=== PATIENT | female | born 1960 | race Caucasian/White ===

== ENCOUNTER 2017-03-29 16:59 | Emergency (ER) | payer OTHER, BC ==
[~2017-03-29] VITALS: Ht 154.9 cm; Wt 71.7 kg
[2017-03-29] MEDS ORDERED: NORCO 5-325 TA1 EACH PO (18:22)
[2017-03-30] MEDS ORDERED: LAMICTAL150 MG PO (14:23)
[2017-03-30] MEDS ORDERED: PRILOSEC OTC20 MG PO (14:24)
[2017-03-30] MEDS ORDERED: IRON325 M1 PO (14:24)
[2017-03-30] MEDS ORDERED: CYMBALTA30 MG PO (14:24)
== END 2017-03-29 19:05 | disposition home or self-care (01) ==
LOC: ED 16:59
PROC: 2W3CX1Z Immobilization of Right Lower Arm using Splint (ICD-10-PCS; principal; 2017-03-29)
DX: S62.616A Displaced fracture of proximal phalanx of right little finger, initial encounter for closed fracture (principal); S62.614A Displaced fracture of proximal phalanx of right ring finger, initial encounter for closed fracture; S80.11XA Contusion of right lower leg, initial encounter; S60.221A Contusion of right hand, initial encounter; Z88.2 Allergy status to sulfonamides; V43.52XA Car driver injured in collision with other type car in traffic accident, initial encounter
CPT/HCPCS: 29125; 73110; 73130; 90715; 96372; 99283

== ENCOUNTER 2017-04-03 09:00 | Day surgery (SDC) | payer OTHER, BC ==
[~2017-04-03] VITALS: Ht 154.9 cm; Wt 71.7 kg
[~2017-04-03 09:00] MED LIST: CYMBALTA30 MG PO; IRON325 M1 PO; LAMICTAL150 MG PO; NORCO 5-325 TA1 EACH PO; PRILOSEC OTC20 MG PO
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
== END 2017-04-03 17:38 | disposition home or self-care (01) ==
LOC: DS 09:00 → OPS 09:00 → DS 14:00 → OPS 14:00
PROVIDERS: Specialist
PROC: 0PSP04Z Reposition Right Metacarpal with Internal Fixation Device, Open Approach (ICD-10-PCS; 2017-04-03)
PROC: 0PSP04Z Reposition Right Metacarpal with Internal Fixation Device, Open Approach (ICD-10-PCS; principal; 2017-04-03 14:00)
DX: S62.314A Displaced fracture of base of fourth metacarpal bone, right hand, initial encounter for closed fracture (principal); S62.316A Displaced fracture of base of fifth metacarpal bone, right hand, initial encounter for closed fracture; F41.0 Panic disorder [episodic paroxysmal anxiety]; F32.9 Major depressive disorder, single episode, unspecified; M19.90 Unspecified osteoarthritis, unspecified site; G43.909 Migraine, unspecified, not intractable, without status migrainosus; D64.9 Anemia, unspecified; Z96.611 Presence of right artificial shoulder joint; Z88.2 Allergy status to sulfonamides; Z98.890 Other specified postprocedural states; Z88.8 Allergy status to other drugs, medicaments and biological substances; V89.2XXA Person injured in unspecified motor-vehicle accident, traffic, initial encounter
CPT/HCPCS: 01830; 64415; 73120; 76942; C1713; J0690; J0735; J1100; J1885; J2250; J2270; J2405; J2704; J2765; J3010; J7120

== ENCOUNTER 2018-10-08 05:45 | Day surgery (SDC) | payer BC ==
--- NOTE | 2018-09-25 17:01 | NUR ---
PATIENT HERE TODAY FOR PREADMISSION APPOINTMENT. SHE IS SCHEDULED TO HAVE A RIGHT TOTAL KNEE ARTHROPLASTY DONE ON 10/08/18. HER PER WILL BE HERE TO TAKE HER HOME WHEN SHE IS DISCHARGED AND TO APPOINTMENTS NEEDED. THEY HAVE ONE STEP INTO THE HOME AND NO STEPS INSIDE THE HOME. SHE HAS A WALK IN SHOWER AND ALREADY HAS A SHOWER BENCH. SHE WILL BE BORROWING A FRONT WHEELED WALKER FROM A FRIEND. SHE HAS ATTENDED THE [facility] AND PHYSICAL THERAPY IS SET UP WITH [facility]. THIS INFORMATION WILL BE SET TO DR ZENDEJAS OFFICE AND CASE MANAGEMENT FOR FUTHER FOLLOW UP.
[~2018-10-08] VITALS: Ht 154.9 cm; Wt 69.4 kg
[~2018-10-08 05:45] MED LIST changes: +VITAMIN C250 M1 PO
--- NOTE | 2018-10-08 08:56 | NUR ---
10/08/18 0856 Nyasia Castellon SN 0824- PT ARRIVES TO PACU. PT RESPS EVEN AN UNABORED ON RA. 02 SAT HIGH 90S PT TOLERATING WELL. PT ABLE TO RESPOND VERBALLY TO QUESTIONS AT THIS TIME. PT DENIES PAIN NAUSEA AND DIZZINESS. PT STATES SHE IS JUST VERY DROWSY. VARSHA DRESSING IN PLACE WITH GREEN LIGHT FLASIHING. ON-Q PUMP RUNNING AT 2 ML PER HOUR WIT HGREEN LIGHT FLASHING. 0830- PT PROVIDED WITH ICE CHIPS FOR DRY MOUTH. TOLERATING WELL. REPSS EVEN AND UNLABORED. 02 SAT HIGH 90S ON RA. DENIES PAIN NAUSEA AND DIZZINESS AT THIS TIME. 0839- PT REPORTS FEELING ITCHY AT THIS TIME. SHE STATES THIS IS TOLERABLE. PT EEDUCATED ON POSSIBLE REASONS FOR THIS ITCHINESS BY CHARELNE VENEGAS. PT RESPS EVEN AND UNLABORED. 02 SAT HIGH 90'S ON RA. PT REPORTS NO PAIN NAUSEA OR DIZZINESS AT THIS TIME.
--- NOTE | 2018-10-08 09:15 | NUR ---
PT ARRIVED TO ROOM 115, PT ALERT, REPORTS NO PAIN OR NAUSEA. DRESSING IN PLACE VACCUM WNL, ON Q SET AT 2. FAMILY AT BEDSIDE. REPORTS FROM DAYANA RN AND STUDENT RN.
--- NOTE | 2018-10-08 09:40 | NUR ---
PT REPORT RECEIVED FROM CHARLENE CORNEJO. PT AND IN ROOM. PT AWAKE AND ALERT. STILL NUMB BUT ABLE TO WIGGLE TOES. EDUCATED ON VARSHA, ON-Q. VS STABLE.
--- NOTE | 2018-10-08 11:45 | NUR ---
MET WITH PT, JUST BEFORE SURGERY. PT SUPPORTED BY HER PER. DR INIGUEZ TO COME IN-EXTENDED A BLESSING, WILL CONTINUE TO FOLLOW NEEDED
--- NOTE | 2018-10-08 11:48 | NUR ---
VISITED WITH PT'S DURING SURGERY. HE SEEMED ALITTLE ANXIOUS, BUT OK. HAD GOOD VISIT WITH HIM, PRAYED WITH HIM AND WILL FOLLOW NEEDED
--- NOTE | 2018-10-08 12:12 | NUR ---
NURSE HANDOFF TO THIS NURSE. PATIENT APPEARS COMFORTABLE, RESTING IN BED WITH EYES CLOSED. NO NEEDS AT THIS TIME. DRESSING C/D/I.
[2018-10-08] MEDS ORDERED: DULOXETINE HCL60 MG PO (13:25)
[2018-10-08] MEDS ORDERED: LAMOTRIGINE100 MG PO (13:27)
--- NOTE | 2018-10-08 13:29 | NUR ---
Medications reconciled with pharmacy records and patient
--- NOTE | 2018-10-08 14:18 | NUR ---
ADMINISTERED SCHEDULED MEDS. PT RATES PAIN 3/10 JUST IN ONE SPOT. DRESSING CDI.
--- NOTE | 2018-10-08 14:23 | NUR ---
PATIENT IN BED, IN ROOM. FRESH WATER GIVEN. CRYO FILLED. CALL LIGHT IN REACH. NO FURTHER NEEDS AT THIS TIME.
--- NOTE | 2018-10-08 14:26 | NUR ---
PT SITTING UP IN BED-ALERT AND ORIENTED. HER PER AT BS. PT STATED THAT HER PAIN IS 2-3, AND THAT SHE HAD BEEN UP SEVERAL TIMES TO VOID. PREPARING FOR PM P.T. HAD PLEASANT VISIT, CHARLENE GARCIA IN TO GIVE MEDS AND EXPLAINED EACH SHE GAVE TO PT. PT REQUESTED PRAYER, WILL FOLLOW NEEDED
--- NOTE | 2018-10-08 17:23 | NUR ---
PT SITTING UP IN BD EATING DINNER. RATES PAIN 0/10. DID WELL WITH THERAPY TODAY. DRESSING REMAINS CDI.
--- NOTE | 2018-10-08 18:11 | NUR ---
PATIENT IN BED RESTING. CRYO FILLED. FRESH WATER GIVEN. CALL LIGHT IN REACH. NO FURTHER NEEDS AT THIS TIME.
--- NOTE | 2018-10-08 20:19 | NUR ---
RECEIVED REPORT FROM DAY SHIFT RN. PATIENT IS RESTING IN BED. IS AT THE BEDSIDE. PATIENT DENIES ANY PAIN. NO NEEDS NOTED. CALL LIGHT IN REACH.
--- NOTE | 2018-10-08 21:20 | NUR ---
PATIENT ASSESEMENT COMPLETED. PATIENT DENIES ANY PAIN. PATIENT GIVEN SCHEDULED MEDICATIONS PER ORDER. PATIENT IS SL AND IV FLUSHES WELL. PATIENT HAS TEDHOSE, SCDS, AND HEEL PROTECTORS ON BILAT LOW EXT. PATIENT HAS VARSHA IN PLACE, GREEN LIGHT FLASHING, AND SCANT DRAINAGE NOTED. ON-Q IN PLACE. PATIENT HAS CRYO APPLIED TO RIGHT KNEE AND CRYO HAS SUFFICIENT ICE. PATIENT IS AAOX3. PATIENT IS ON RA AND CPOX IN PLACE. PATIENT DENIES ANY FURTHER NEEDS NOTED. CALL LIGHT IN REACH.
--- NOTE | 2018-10-08 23:59 | NUR ---
PATIENT IS RESTING IN BED WITH EYES CLOSED. CPOX WNL. CALL LIGHT IN REACH.
--- NOTE | 2018-10-09 00:05 | NUR ---
V/S AND I&O TAKEN AND RECORDED. ASSISTED PATIENT TO THE BATHROOM AND BACK TO BED USING WALKER. SCD, CRYO HEEL PROTECTOR AND CPOX ARE BACK ON. CALL LIGHT AND TABLE WITHIN REACH.
--- NOTE | 2018-10-09 02:51 | NUR ---
PATIENT ASSISTED TO THE RESTROOM A SBA W/FWW. PATIENT WAS ABLE TO VOID. PATIENT IS NOW BACK IN BED RESTING. PATIENT IS STEADY ON HER FEET. PATIENT HAS SCDS, HEEL PROTECTORS, AND TEDHOSE ON BILAT LOW EXT. CRYO REFILLED WITH ICE AND APPLIED TO RIGH KNEE. PATIENT DENIES ANY PAIN AT REST OR W/AMBULATION. PATIENTS SCHEDULED MEDICATIONS GIVEN PER ORDER. PATIENT DENIES ANY FURTHER NEEDS. CALL LIGHT IN REACH.
--- NOTE | 2018-10-09 04:45 | NUR ---
PATIENT IS RESTING IN BED WITH EYES CLOSED, RR 17. CALL LIGHT IN REACH.
--- NOTE | 2018-10-09 05:18 | NUR ---
PATIENT RESTED WELL THROUCHOUT THE SHIFT. PATIENT IS A SBA W/FWW AND IS STEADY ON HER FEET. PATIENT IS ON A REGULAR DIET, TOLERATING WELL, AND NO COMPLAINTS OF NAUSEA. PATIENT IS ON RA. PATIENT IS SL AND IV FLUSHES WELL. PATIENT HAS CRYO APPLIED TO RIGHT KNEE. PATIENT HAS SCDS, TEDHOSE, AND HEEL PROTECTORS APPLIED TO BILAT LOW EXT. PATIENT HAS ON-Q IN PLACE. PATIENT HAS VARSHA DRESSING IN PLACE, SCANT DRAINAGE NOTED, AND GREEN LIGHT FLASHING. PATIENT HAS DENIED ANY PAIN. PATIENT IS AAOX3 AND USES CALL LIGHT APPROPRIATELY.
--- NOTE | 2018-10-09 06:21 | NUR ---
PATIENTS VITALS TAKEN AND RECORDED. PATIENTS INTAKE AND OUPUT RECORDED. MORNING MEDICATIONS GIVEN PER ORDER. PATIENT RATES PAIN AT A 2/10. PATIENT DENIES THE NEED FOR PAIN MEDICATION AT THIS TIME. PATIENT DENIES ANY FURTHER NEEDS. CALL LIGHT IN REACH.
--- NOTE | 2018-10-09 07:37 | NUR ---
BEDSIDE REPORT..PT RESTING IN BED EYES CLOSED, RESP EVEN 14 BPM NO DISTRESS NOTED. PT APPEARS TO BE SLEEPING.
[2018-10-09] MEDS ORDERED: DICLOFENAC SODI75 MG PO (08:10)
[2018-10-09] MEDS ORDERED: GABAPENTIN600 MG PO (08:11)
[2018-10-09] MEDS ORDERED: TYLENOL EXTRA500 MG PO (08:11)
[2018-10-09] MEDS ORDERED: HEALTHYLAX17 GM PO (08:11)
[2018-10-09] MEDS ORDERED: OXYCODONE HCL5 MG PO (08:11)
[2018-10-09] MEDS ORDERED: SENNA LAX8.6 MG PO (08:11)
[2018-10-09] MEDS ORDERED: ASPIRIN EC325 MG PO (08:12)
--- NOTE | 2018-10-09 08:25 | NUR ---
PATIENT UP TO CHAIR FOR BREAKFAST, 1PA FWW. CALL LIGHT IN REACH. NO FURTHER NEEDS AT THIS TIME.
--- NOTE | 2018-10-09 09:23 | NUR ---
PT UP AMBULATING WITH PHYSICAL THERAPY, SHE REPORTS 0/10 AND DOES NOT WANT ANY PAIN MEDICATION AT THIS TIME
--- NOTE | 2018-10-09 10:16 | NUR ---
PT BACK TO RECLINER AFTER WORKING WITH PHYSCIAL THERAPY, SHE REPORTS PAIN 4/10, GOAL LEVEL 2/10. PT DID NOT WANT OXYCODONE AT THIS TIME. PT GIVEN SCHEDULED PAIN MEDICATIONS AT THIS TIME.
--- NOTE | 2018-10-09 11:27 | NUR ---
PATIENT UP TO SHOWER AND BACK TO CHAIR, 1PA FWW. IN ROOM. PATIENT DRESSED IN HER OWN CLOTHES. CRYO FILLED. FRESH WATER GIVEN. CALL LIGHT IN REACH. NO FURTHER NEEDS AT THIS TIME.
--- NOTE | 2018-10-09 11:46 | NUR ---
PT BACK TO RECLINER AFTER SHOWER, PLASTIC WRAP AND FOAM TAPE COVERED PROXIMAL AREA OF DRESSING WHERE LINES COME OUT. DRESSING MAINTAINED SEAL/VACCUM
--- NOTE | 2018-10-09 13:30 | NUR ---
PT IS DRESSED, SITTING IN CHAIR FINISHING LUNCH. SHE IS ALERT, ORIENTED AND FEELS P.T. WENT WELL THIS AM. DID STAIRS, AND HOPES TO BE DC'D THIS PM AFTER P.T. PT REQUESTED PRAYER, WILL FOLLOW NEEDED
--- NOTE | 2018-10-09 15:00 | NUR ---
PT AND SPOUSE IN ROOM FOR EDUCATION. DISCUSSED MEDICATIONS LAST DOSE NEXT DOSE. PRECAUTIONS FOR PAIN MEDICATIONS AND PAIN PLAN. DISCUSSED THINGS TO MONITOR TO SEEK MEDICAL ATTENTION. ACTIVITY, PRECAUTIONS FOR PHYSICAL THERAPY. PLAN FOR DRESSING CHANGE ON MONDAY AND FOLLOW UP APPOINTMENT WITH . I.V. SITE REMOVED WNL TIP INTACT. DISCUSSED ON Q-PUMP SETTINGS AND HOW/WHEN TO CHANGE SETTINGS PER . PT REPORTS NO PAIN AT THIS TIME.
--- NOTE | 2018-10-10 07:09 | OR ---
[facility] [address] [place], [place] [address] Signed DATE OF OPERATION: 10/08/2018 SURGEON: Renzo Yen MD PREOPERATIVE DIAGNOSIS: Degenerative joint disease, right knee. POSTOPERATIVE DIAGNOSIS: Degenerative joint disease, right knee. PROCEDURE PERFORMED: Right total knee arthroplasty with computer navigation. ROUTE SALES DELIVERY DRIVER: Elinor Segal PA-C. Elinor was present critical for all portions of procedure. ANESTHESIA: Spinal. BLOOD LOSS: 125 mL. IMPLANTS: Obey Triathlon size 3 femur, size 3 tibia, and 9 mm insert, and 32 mm patella. BRIEF HISTORY: Pauline is a 58-year-old female with progressive worsening of significant knee pain. She had undergone injections, bracing and arthroscopy without substantial relief. Risks and benefits of operative treatment were discussed with her and she elected to proceed. DESCRIPTION OF PROCEDURE: Once consent was obtained, she was taken to the operating room. After adequate anesthesia, she was placed on operating table and hip bump was placed. The leg was prepped and draped in a standard sterile fashion. The knee was approached through standard anterior incision and carried through skin and subcutaneous tissue. Median parapatellar arthrotomy was performed. The MCL was elevated of a sleeve around the posterior medial corner. The fat pad was removed. The anterior horns of menisci were transected and the ACL was transected. The PCL was found to be intact. The knee was Electronically Signed By: RENZO YEN MD 10/10/18 0709 PATIENT NAME: PAULINE CHANG OPERATIVE REPORT DATE OF : 60 REPORT #: [id number] PHYSICIAN: RENZO YEN MD PCP: RACHEL LAWRENCE DO REPORT IS CONFIDENTIAL AND NOT TO BE RELEASED WITHOUT AUTHORIZATION [facility] [address] [place], [place] [address] Signed then flexed. The navigation guide was pinned to the distal femur and the femur was registered with the computer. The distal femoral cutting guide was then pinned in neutral alignment and set to take 11 mm off. The distal femoral cut was made and osteophytes were removed. The distal femur sized to a 3. The AP cutting block was then pinned in line with epicondylar axis. The anterior, posterior, and chamfer cuts were made. The attention was then turned to the proximal tibia. The menisci removed to allowed better visualization. The navigation guide was then pinned to the proximal tibia and the cutting block was pinned in neutral alignment. It was set to take 4 mm off the most involved posterior lateral corner. The cut was made with care taken to protect the patellar tendon and MCL. The flexion-extension gaps were sized and found to be symmetric at 9 mm. The trials were then positioned. Knee was taken through range of motion and found to be stable. The patella was cut sized and drilled for a 32 patella. The distal femoral drill holes were made. The keel punch was used to punch the tibia. bone was then pulse lavaged and packed with peroxide soaked-sponge. The cement was mixed and reached proper consistency, it was placed on all implants and on bone surfaces. Tibia was impacted in position, first followed by the polyethylene. All excess cement was removed. The femur was then impacted into position and again all excess was removed. The knee was extended and nicely loaded. The polyethylene patella was then clamped into position again overflow was removed. The cement was allowed to harden for 12 minutes, once hardened sufficiently the knee was flexed and the remaining cement was removed using osteotomes. The periarticular soft tissues were then injected with 100 mL ropivacaine Toradol mixture. The On-Q pump was then placed percutaneously into the adductor canal from inside the knee. The arthrotomy was then closed using #2 Stratafix, subcutaneous tissue #0 Stratafix, and skin with Dermabond mesh. The wound was dressed with an On-Q pain pump and Don wrap. She was awakened and taken to recovery room in satisfactory condition. All sponge, needle, and instrument counts were correct. Renzo Yen MD BA/MODL /[id number] Copies: Electronically Signed By: RENZO YEN MD 10/10/18 0709 PATIENT NAME: PAULINE CHANG OPERATIVE REPORT DATE OF : 60 REPORT #: [id number] PHYSICIAN: RENZO YEN MD PCP: RACHEL LAWRENCE DO REPORT IS CONFIDENTIAL AND NOT TO BE RELEASED WITHOUT AUTHORIZATION [address] [address] Signed ~ Electronically Signed By: RENZO YEN MD 10/10/18 0709 PATIENT NAME: PAULINE CHANG OPERATIVE REPORT DATE OF : 60 REPORT #: [id number] PHYSICIAN: RENZO YEN MD PCP: RACHEL LAWRENCE DO REPORT IS CONFIDENTIAL AND NOT TO BE RELEASED WITHOUT AUTHORIZATION
--- NOTE | 2018-10-11 12:49 | NUR ---
FAXED CHART NOTES INCLUDING FACE SHEET, H AND P, OP NOTE, PROG NOTE, OT AND PT EVAL AND NOTES. RECIEVED FAX CONFIRMATION. CALLED TO OP PT AND THEY SAID THEY HAVE ALREALY RECIEVED AN ORDER. TALKED WITH LORENE AT PT. SHE CONFIRMED THEY HAVE AN ORDER.
== END 2018-10-09 15:08 | disposition home or self-care (01) ==
LOC: DS 05:45 → OPS 05:45 → EDSTATUS 06:45 → OPS 06:45 → MS 09:00 → OPS 10-09 15:08
PROVIDERS: Specialist
PROC: 8E0YXBZ Computer Assisted Procedure of Lower Extremity (ICD-10-PCS; 2018-10-08)
PROC: 0SRC0J9 Replacement of Right Knee Joint with Synthetic Substitute, Cemented, Open Approach (ICD-10-PCS; principal; 2018-10-08 06:45)
DX: M17.11 Unilateral primary osteoarthritis, right knee (principal); F41.0 Panic disorder [episodic paroxysmal anxiety]; F32.9 Major depressive disorder, single episode, unspecified; D64.9 Anemia, unspecified; Z88.2 Allergy status to sulfonamides; Z91.048 Other nonmedicinal substance allergy status; Z79.899 Other long term (current) drug therapy
CPT/HCPCS: 01402; 64447; 64450; 76942; 97110; 97116; 97161; 97165; C1713; C1776; J0131; J0690; J1100; J1885; J2250; J2704; J2795; J3010; J3475; J7120

== ENCOUNTER 2018-11-09 10:54 | Day surgery (SDC) | payer OTHER, BC ==
[~2018-11-09] VITALS: Ht 154.9 cm; Wt 69.4 kg
[~2018-11-09 10:54] MED LIST changes: +ASPIRIN EC325 MG PO; +DICLOFENAC SODI75 MG PO; +DULOXETINE HCL60 MG PO; +GABAPENTIN600 MG PO; +HEALTHYLAX17 GM PO; +LAMOTRIGINE100 MG PO; +OXYCODONE HCL5 MG PO; +SENNA LAX8.6 MG PO; +TYLENOL EXTRA500 MG PO
[2018-11-09] MEDS ORDERED: HYDROCODON-ACE1 EA10 PO (13:47)
[2018-11-09] MEDS ORDERED: DICLOFENAC SODI75 MG PO (13:47)
--- NOTE | 2018-11-09 13:53 | NUR ---
11/09/18 1353 Nyasia Castellon SN 1347- PT ARRVIES TO PACU. PT IS AWAKE AND CONVERSING WIT HSTAFF MEMBERS. RESPS EVEN AND UNLABORED. 02 SAT HIGH 90S ON RA. DENIES PAIN NAUSEA AND DIZZINESS AT THIS TIME. BAMBI LEDEZMA AT BEDSIDE AND DR ZENDEJAS AT BEDSIDE EDUCATING PT ON PROCEDURE. ALL QUESTIONS ANSWERED AND PT CONVERSING APPROPRIATELY WITH STAFF.
--- NOTE | 2018-11-09 14:41 | NUR ---
1415: PT ARRIVES TO DS RM 10 FROM PACU AWAKE AND ALERT. PT RESP EVEN AND UNLABORED, SATS ABOVE 94% ON RA. PT DENIES NAUSEA, TOLERATES WATER WELL. PT RATES PAIN 5/10, REPORTING, "IT'S DEFINITELY WAKING UP!" PT PROVIDED PUDDING AND MEDICATED FOR PAIN, SEE EMAR. PT FRIEND IN RM AT BEDSIDE, CALL LIGHT WITHIN REACH.
--- NOTE | 2018-11-09 15:29 | NUR ---
VS CHECKED. PATIENT VISITING WITH FRIEND. NO REUESTS AT THIS TIME. CALL LIGHT WITHIN REACH.
--- NOTE | 2018-11-09 16:16 | NUR ---
1550: PATIENT ASSISTED OOB AND TO BATHROOM. GAIT STEADY. VOID WITHOUT DIFFICULTY. GAIT STEADY BACK TO ROOM. IV DC'D WNL. TIP INTACT. DRESSING APPLIED. DISCHARGE INSTRUCTIONS GIVEN TO PATIENT. 1610: PATIENT ASSISTED TO GET DRESSED. PATIENT DISCHARGED TO HOME WITH FRIEND VIA WHEELCHAIR.
--- NOTE | 2018-11-11 08:44 | OR ---
[facility] [address] [facility] [place], [place] [address] Signed DATE OF OPERATION: 11/09/2018 SURGEON: Renzo Yen MD PREOPERATIVE DIAGNOSIS: Painful hardware, right hand. POSTOPERATIVE DIAGNOSIS: Painful hardware, right hand. PROCEDURE PERFORMED: Hardware removal deep. ALTERNATIVE EDUCATION TEACHER: None. TOURNIQUET TIME: 46 minutes. ANESTHESIA: General. BLOOD LOSS: Minimal. BRIEF HISTORY: Pauline is a 58-year-old female with painful crepitance over the hardware in her hand. She had had ORIF of both the 4th and 5th digits. Risks and benefits of operative removal were discussed with her and she elected to proceed. DESCRIPTION OF PROCEDURE: Once consent was obtained, she was taken to the operating room. After adequate anesthesia, she was placed on operating room table. Well-padded proximal arm tourniquet was placed. The arm was then prepped and draped in a standard sterile fashion and the arm was exsanguinated using Esmarch bandage. Tourniquet inflated to 200 mmHg. The prior incision was then marked out and incised, carried through skin and subcutaneous tissue with care taken to avoid the venous structures. The incision was taken down between the 4th and 5th digits and then at the periosteal level was taken through the scar tissue at both the 4th and 5th digits. The plates were cleaned off using the [place] elevator and the screws were sequentially removed. Two of the proximal screws in the Electronically Signed By: RENZO YEN MD 11/11/18 0844 PATIENT NAME: PAULINE CHANG OPERATIVE REPORT DATE OF : 60 REPORT #: [id number] PHYSICIAN: RENZO YEN MD PCP: RACHEL LAWRENCE DO REPORT IS CONFIDENTIAL AND NOT TO BE RELEASED WITHOUT AUTHORIZATION [facility] [address] [place], [place] [address] Signed 4th digit were broken prior to our arrival. The middle screw proximally was completely loose. All screws were removed and both plates were removed. There was some bleeding from the bone and bone wax was introduced to decrease that. The wound was copiously irrigated with antibiotic solution, closed with 3-0 Monocryl, and prior to that we did check the tendons and they did appear intact. The skin was closed using Steri-Strips and Dermabond. Wound was dressed with Mepilex dressing, 4 x 8, and ABD. She tolerated the procedure well. All sponge, needle, and instrument counts were correct. Renzo Yen MD BA/GIOL /[id number] Copies: ~ Electronically Signed By: RENZO YEN MD 11/11/18 0844 PATIENT NAME: PAULINE CHANG OPERATIVE REPORT DATE OF : 60 REPORT #: [id number] PHYSICIAN: RENZO YNE MD PCP: RACHEL LAWRENCE DO REPORT IS CONFIDENTIAL AND NOT TO BE RELEASED WITHOUT AUTHORIZATION
== END 2018-11-09 16:10 | disposition home or self-care (01) ==
LOC: OPS 10:54 → DS 10:54 → OPS 12:00 → DS 12:00 → OPS 16:10
PROVIDERS: Specialist
PROC: 0PPP04Z Removal of Internal Fixation Device from Right Metacarpal, Open Approach (ICD-10-PCS; principal; 2018-11-09 12:00)
DX: T84.84XA Pain due to internal orthopedic prosthetic devices, implants and grafts, initial encounter (principal); S62.304D Unspecified fracture of fourth metacarpal bone, right hand, subsequent encounter for fracture with routine healing; S62.306D Unspecified fracture of fifth metacarpal bone, right hand, subsequent encounter for fracture with routine healing; Z79.899 Other long term (current) drug therapy
CPT/HCPCS: 01830; J0690; J1100; J1885; J2250; J2405; J2704; J3475; J7120

== ENCOUNTER 2022-05-09 06:55 | Day surgery (SDC) | payer BC ==
[~2022-05-09] VITALS: Ht 154.9 cm; Wt 74.5 kg
[~2022-05-09 06:55] MED LIST changes: +ESTROVEN CMPLT M4 MG PO; +HYDROCODON-ACE1 EA10 PO; +OSTERA TABLET1 EACH PO; +PROPRANOLOL HCL10 MG PO
[2022-05-09] MEDS ORDERED: VITAMIN D325 MC2 PO (07:11)
--- NOTE | 2022-05-09 10:19 | NUR ---
05/09/22 Isabel9 Candy Benton 1011- PT ARRIVES TO PACU AWAKE AND TALKING. PT REPORTS NO PAIN OR NAUSEA. RESP EVEN AND UNLABORED. OXYGEN SAT HIGH 90'S TO 100% ON 6L VIA MASK. PT FALLS TO SLEEP INTERMITTENTLY. WAKES ON AND OFF ON HER OWN. 1014- PER HOSE, SOCK, AND FOOT PUMP APPLIED TO PT'S RIGHT FOOT/ LEG. ALREADY PLACED ON LEFT FOOT/ LEG.
--- NOTE | 2022-05-09 11:21 | NUR ---
LE 1110: PT ARRIVES TO FROM PACU. SHE IS BACK TO HER BASELINE. SHE IS REPORTING MINIMAL PAIN IN THE LEFT KNEE; TELEPHONE ADVICE NURSE COMES IN AND DISCUSSES AN ADDITIONAL BLOCK THAT CAN BE DONE TO HELP COVER PAIN ON THE OUTSIDE OF THE KNEE. CALL LIGHT WITHIN REACH. WATER ON BEDSIDE TABLE, SHE IS TOLERATING WATER. PER IS AT THE BEDSIDE. PT WOULD LIKE TO TRY SOME JELLO. NO ADDITIONAL NEEDS OR CONCERNS AT THIS TIME.
--- NOTE | 2022-05-09 11:22 | NUR ---
PT IS EDUCATED ON HOW TO USE INCENTIVE SPIROMATER, SHE PROVIDES DEMONSTRATION AND REPEAT BACK EDUCATION.
--- NOTE | 2022-05-09 12:42 | NUR ---
PT IS DOING WELL. SHE HAS TOLERATED JELLO AND WATER. SHE CONTINUES TO DO INCENTIVE SPIROMETER. SPOUSE IS AT THE BEDSIDE. CALL LIGHT WITHIN REACH. NO ADDITIONAL NEEDS OR CONCERNS AT THIS TIME.
--- NOTE | 2022-05-09 12:51 | NUR ---
LE 1155: PT WOULD LIKE TO GET UP AND USE THE RESTROOM. 2 RNS ASSIST PT UP OOB WITHOUT ISSUE. PT TRANSFERS HERSELF WITH MINIMAL ASSISTANCE TO BEDSIDE COMMODE. ONCE DONE SHE IS ABLE TO TRANSFER HERSELF BACK TO BED WITH MINIMAL ASSIST.
--- NOTE | 2022-05-09 12:51 | OR ---
[facility] [address] [place] [place] [address] Signed DATE OF OPERATION: 05/09/2022 SURGEON: Renzo Yen MD PREOPERATIVE DIAGNOSIS: Severe DJD, left knee. POSTOPERATIVE DIAGNOSIS: Severe DJD, left knee. PROCEDURE PERFORMED: Left total knee arthroplasty with Luis Eduardo. SAFETY ENGINEER: Elinor Segal PA-C. Elinor was present and critical for all portions of procedure. ANESTHESIA: Spinal. BLOOD LOSS: 175 mL. TOURNIQUET TIME: Zero. IMPLANTS: [place] Triathlon size 3 femur, 2 tibia, 10 mm polyethylene and a 32 mm patella. BRIEF HISTORY: Pauline is a 62-year-old female with bilateral knee DJD. She had been treated nonoperatively for a significant amount of time without substantial relief. She had undergone successful right total knee and wished to proceed with the left. Risks, benefits, and alternatives of surgery were discussed with her and she elected to proceed. DESCRIPTION OF PROCEDURE: Once consent was obtained, she was taken to the operating room. After adequate anesthesia, she was placed on a hip bump and her leg was prepped and draped in a standard sterile fashion. The knee was approached through a standard anterior midline Electronically Signed By: RENZO YEN MD 05/09/22 1251 PATIENT NAME: PAULINE CHANG OPERATIVE REPORT DATE OF : 60 REPORT #: [id number] PHYSICIAN: RENZO YEN MD PCP: RACHEL LAWRENCE DO REPORT IS CONFIDENTIAL AND NOT TO BE RELEASED WITHOUT AUTHORIZATION [facility] [address] [place], [place] [address] Signed incision, carried through the skin and subcutaneous tissue. A subvastus approach was undertaken and the MCL was elevated with a sleeve around to the posteromedial corner. The infrapatellar fat pad was excised. The anterior horn of the lateral meniscus was transected. The medial meniscus was absent. The ACL was transected. The PCL was found to be intact. The knee was flexed slightly and the navigation computer array was placed in the medial femoral condyle along with checkpoint. Checkpoint was placed in the proximal tibia and the navigation guide was percutaneously placed in the tibia. The leg was then registered with the computer as was the fine anatomic points of the knee. Ligamentous testing showed essentially a balanced knee. The robot was brought in and 4 straight cuts were made with care taken to protect the patellar tendon and MCL. The 2 angle cuts were then made and the bony remnants were removed. Any remaining osteophytes removed as we went. The trials were then positioned after checking the back of the knee for any osteophytes. The knee was taken through range of motion. The 11 was a little bit too tight. The 10 showed good range of motion from 0 to 130 degrees. There was excellent stability. The patella was cut sized and drilled for a 32 mm patella. The distal femur was drilled and the proximal tibia was finished using the keel punch. The implants were obtained and the tibia was impacted in position until it was well-seated and the polyethylene was snapped. The femur was then impacted until it was well seated. The knee was extended and nicely loaded. The patella was clamped and the clamp was removed. The patellar tracking was noted to be good. The periarticular soft tissues were injected with 100 mL of ropivacaine and Toradol mixture. The knee was pulse lavaged at intervals throughout the procedure. A total of 3 L of normal saline was used. An Irrisept soak was done in the middle. The On-Q pain pump was percutaneously placed into the adductor canal from the suprapatellar pouch. The arthrotomy was then closed using #2 Stratafix, subcutaneous tissue with 0 Quill and the skin with 3-0 Stratafix and LiquiBand. The wound was dressed with an Acticoat 7 dressing, ABD, and Don wrap. She tolerated the procedure well. All sponge, needle, and instrument counts were correct. Renzo Yen MD BA/GIOL /[id number] Electronically Signed By: RENZO YEN MD 05/09/22 1251 PATIENT NAME: PAULINE CHANG OPERATIVE REPORT DATE OF : 60 REPORT #: [id number] PHYSICIAN: RENZO YEN MD PCP: RACHEL LAWRENCE DO REPORT IS CONFIDENTIAL AND NOT TO BE RELEASED WITHOUT AUTHORIZATION [address] [place] [address] Signed Copies: ~ Electronically Signed By: RENZO YEN MD 05/09/22 1251 PATIENT NAME: PAULINE CHANG MIKEY OPERATIVE REPORT DATE OF : 60 REPORT #: [id number] PHYSICIAN: RENZO YEN MD PCP: RACHEL LAWRENCE DO REPORT IS CONFIDENTIAL AND NOT TO BE RELEASED WITHOUT AUTHORIZATION
--- NOTE | 2022-05-09 13:40 | NUR ---
PT FINISHED LUNCH. SHE REPORTS THAT SHE IS READY TO WORK WITH PHYSICAL THERAPY. AT BEDSIDE. CALL LIGHT WITHIN REACH.
--- NOTE | 2022-05-09 14:31 | NUR ---
PT HAS MET ALL DC CRITERIA AND WAS CLEARED BY PHYSICAL THERAPY. SHE WOULD LIKE TO GO HOME. VERBAL OK FROM DR. ZENDEJAS TO SEND PT HOME.
--- NOTE | 2022-05-09 15:20 | NUR ---
LE 1435: PT IS GIVEN VERBAL AND WRITTEN DC INSTRUCTIONS WITH PRESENT. BOTH AND PT VERBALIZE UNDERSTANDING. QUESTIONS ARE ASKED AND ASNWERED. PT IS TAKEN TO PERSONAL VEHICLE VIA WC, WHERE SHE IS ABLE TO TRANSFER HERSELF SAFELY WITHOUT ISSUES.
== END 2022-05-09 14:40 | disposition home or self-care (01) ==
LOC: DS 06:55
PROVIDERS: ATTEND Specialist
PROC: 0SRD0JZ Replacement of Left Knee Joint with Synthetic Substitute, Open Approach (ICD-10-PCS; 2022-05-09)
PROC: 3E0T3BZ Introduction of Anesthetic Agent into Peripheral Nerves and Plexi, Percutaneous Approach (ICD-10-PCS; principal; 2022-05-09 08:45)
DX: M17.12 Unilateral primary osteoarthritis, left knee (principal); F41.9 Anxiety disorder, unspecified; F32.A Depression, unspecified; K21.9 Gastro-esophageal reflux disease without esophagitis; Z88.2 Allergy status to sulfonamides; Z91.048 Other nonmedicinal substance allergy status
CPT/HCPCS: 64447; 76942; C1713; C1776; J0690; J1100; J1885; J2001; J2250; J2370; J2405; J2704; J2795; J3010

== ENCOUNTER 2024-07-08 05:42 | Day surgery (SDC) | payer BC ==
[2024-07-02 15:49] VITALS: BP 146/87
[2024-07-08] VITALS (7 sets, daily range): BP systolic 85–147; BP diastolic 47–78
[~2024-07-08] VITALS: Ht 154.9 cm; Wt 77.7 kg
[~2024-07-08 05:42] MED LIST changes: +ACETAMINOPHEN500 M1 PO; +ESTROVEN MAX400 MCG PO; +ESTROVERA4 MG PO; +HYDROCODON-ACE1 EA11 PO; +LACTATED RINGER'S 1,000 ML IV SCH; +TRAMADOL HCL50 MG PO; +VITAMIN B12500 MCG PO; +VITAMIN D325 MC2 PO; +XARELTO10 MG PO
[2024-07-08] MEDS ORDERED: CEFAZOLIN SODIUM 2 GM/20 ML SYR ONE (05:49)
[2024-07-08] MEDS ORDERED: LIDOCAINE HCL 2% 5 ML SDV ONE ×2 (06:09→06:10)
[2024-07-08] MEDS ORDERED: propofoL 200 MG/20 ML VIAL ONE ×2 (06:10→07:48)
[2024-07-08] MEDS ORDERED: BUPIVACAINE 0.75% IN DEXTROSE 2 ML AMP ONE (06:10)
[2024-07-08] MEDS ORDERED: MIDAZOLAM HCL 2 MG/2 ML VIAL ONE (06:38)
[2024-07-08] MEDS ORDERED: NALOXONE HCL 0.4 MG SYR IV PRN (06:45)
[2024-07-08] MEDS ORDERED: ondansetron HCL 4 MG/2 ML VIAL IV PRN (06:45)
[2024-07-08] MEDS ORDERED: IBLOOD GLUCOSE TEST STRIP 1 EA TEST VI PRN ×2 (06:45→07:00)
[2024-07-08] MEDS ORDERED: HYDROmorphone HCL 1 MG/ML SYR IV PRN (06:45)
[2024-07-08] MEDS ORDERED: fentaNYL citrate 50 MCG/ML SDV IV PRN (06:45)
[2024-07-08] MEDS ORDERED: LIDOCAINE HCL 1% 5 ML SDV INJ ONE (07:00)
[2024-07-08] MEDS ORDERED: ondansetron HCL 4 MG TAB PO SCH (07:00)
[2024-07-08] MEDS ORDERED: OXYCODONE HCL 5 MG TAB PO SCH (07:00)
[2024-07-08] MEDS ORDERED: PANTOPRAZOLE SODIUM 40 MG TABEC PO SCH (07:00)
[2024-07-08] MEDS ORDERED: TRANEXAMIC ACID IN NACL,ISO-OS 1,000 MG/100 ML PIGGYBACK IV SCH ×2 (07:00→09:30)
[2024-07-08] MEDS ORDERED: INTRA-ARTICULAR ANALGESIC INJECTION XX SCH (07:00)
[2024-07-08] MEDS ORDERED: GABAPENTIN 600 MG TAB PO SCH (07:00)
[2024-07-08] MEDS ORDERED: CEFAZOLIN SODIUM 2 GM/20 ML SYR IV SCH ×2 (07:00→15:00)
[2024-07-08] MEDS ORDERED: TRANEXAMIC ACID 1,000 MG/10 ML AMP ONE (07:23)
[2024-07-08] MEDS ORDERED: LACTATED RINGER'S 1,000 ML IV ONE (07:38)
[2024-07-08] MEDS ORDERED: KETOROLAC TROMETHAMINE 30 MG/ML VIAL ONE (08:05)
[2024-07-08] MEDS ORDERED: ASPIRIN325 MG PO (08:44)
[2024-07-08] MEDS ORDERED: CEFUROXIME250 MG PO (08:44)
[2024-07-08] MEDS ORDERED: DICLOFENAC SODI75 MG PO (08:44)
[2024-07-08] MEDS ORDERED: SENNA LAX8.6 MG PO (08:45)
[2024-07-08] MEDS ORDERED: DULOXETINE HCL30 MG PO (08:45)
[2024-07-08] MEDS ORDERED: GABAPENTIN600 MG PO (08:45)
[2024-07-08] MEDS ORDERED: OXYCODONE HCL 5 MG TAB PO PRN (08:45)
[2024-07-08] MEDS ORDERED: KETOROLAC TROMETHAMINE 30 MG/ML VIAL IV PRN (08:45)
[2024-07-08] MEDS ORDERED: OXYCODONE HCL5 MG PO (08:45)
[2024-07-08] MEDS ORDERED: ASPIRIN 325 MG TAB PO SCH (09:00)
[2024-07-08] MEDS ORDERED: DULOXETINE HCL 30 MG CAP PO SCH (09:00)
--- NOTE | 2024-07-08 09:53 | NUR ---
07/08/24 0953 Cecilia Mackenzie 0837 PT ARRIVED IN PACU SLEEPY WITH NO C/O'S. 0845 PELVIS XRAY DONE. 0900 CRYO CUFF PLACED ON L HIP. 0917 C/O L HIP PAIN 8/10. FENTANYL 50MCG GIVEN IVP. 0926 PAIN DOWN TO 5/10. FENTANYL 50MCG GIVEN IV. 0930 SIPPING ON WATER. 0945 PAIN DOWN TO 2/10. TO DS. REPORT GIVEN TO RN.
--- NOTE | 2024-07-08 10:14 | NUR ---
0945-PT BACK TO ROOM 7 FROM PACU ON RA. RECEIVED REPORT FROM FROM LINETTE CHANG. PT IS AWAKE. RESP EVEN AND UNLABORED. RATES PAIN 2/10. O2 SATS BETWEEN 87%-95% ON RA. PT IS ENCOURAGED TO TAKE DEEP BREATHS. CYRO CUFF IN PLACE AND RUNNING. PT IS DRINKING WATER AND EATING JELLO. AT BEDSIDE. CALL LIGHT WITHIN REACH. 1004-PT O2 SATS DECREASED IN TO THE LOW 80'S ON RA. STARTED 2L VIA NC. O2 SATS INCREASE TO 97%-100%.
--- NOTE | 2024-07-08 10:54 | NUR ---
1045-PT IS LAYING IN BED WITH EYES CLOSED. PT OPENS EYES WITH VERBAL STIMULI. PT DENIES PAIN AND NAUSEA. RESP EVEN AND UNLABORED. O2 SATS AT 100% ON 2L VIA NC. CRYO CUFF IN PLACE AND RUNNING. WARM BLANKET PROVIDED AND CHLOÉ HUGGER TURNED ON. AT BEDSIDE. NO OTHER NEEDS AT THIS TIME. CALL LIGHT WITHIN REACH.
--- NOTE | 2024-07-08 11:54 | NUR ---
1126-PT RATES PAIN 01/19. PAIN MEDICATION GIVEN PER EMAR. 1130-PT UP TO BEDSIDE COMMODE. WITH 2 RN ASSIST. PT VOIDS. 300ML OF YELLOW URINE. 140-PT BACK TO BED. RESP EVEN AND UNLABORED. DENIES NAUSEA. CRYO CUFF IN PLACE AND RUNNING. LUNCH ORDERED. CHLOÉ AMITAGGER ON. AT BEDSIDE. CALL LIGHT WITHIN REACH.
--- NOTE | 2024-07-08 14:15 | NUR ---
1258-PT AWAKE. RESP EVEN AND UNLABORED. RATES PAIN 11/19. DENIES NAUSEA. CRYO CUFF IN PLACE AND RUNNING. CHLOÉ HUGGER ON. AT BEDSIDE. CALL LIGHT WITHIN REACH. 1302-PAIN MEDICATION GIVEN PER EMAR. NO OTHER NEEDS AT THIS TIME.
--- NOTE | 2024-07-08 14:23 | NUR ---
1400-PT IS DROWSY. RESP EVEN AND UNLABORED. RATES PAIN 1/10. DENIES NAUSEA. CRYO CUFF IN PLACE AND RUNNING. NO OTHER NEEDS AT THIS TIME. CALL LIGHT WITHIN REACH. AT BEDSIDE.
[2024-07-08] MEDS ORDERED: GABAPENTIN 300 MG CAP PO SCH (15:00)
--- NOTE | 2024-07-08 17:11 | NUR ---
ELIUD 1103-PHYSICAL THERAPY IN ROOM WITH PTJorge
--- NOTE | 2024-07-08 18:22 | NUR ---
LE 1539-PT LAYING IN BED WITH EYES CLOSED. RESP EVEN AND UNLABORED. STATES SHE IS NOT HAVING L HIP PAIN BUT IS HAVING L KNEE PAIN. DENIES NAUSEA. CRYO CUFF IN PLACE AND RUNNING. PT IS READY TO GO HOME. PT WILL GET DRESSED. IN ROOM TO HELP WITH PT.
--- NOTE | 2024-07-08 18:23 | NUR ---
1415-WENT OVER DISCHARGE INSTRUCTIONS WITH PT AND . WENT OVER POSTOP MEDICATIONS. ALL QUESTIONS ANSWERD. 1430-PT AMBULATES TO WHEELCHAIR AND RIDE PROVIDED TO FRONT OF HOSPITAL WHERE WAS WAITING WITH THE CAR.
[2024-07-08] MEDS ORDERED: SENNOSIDES 1 TAB PO SCH (21:00)
[2024-07-09] MEDS ORDERED: DICLOFENAC SOD 75 MG TABEC PO SCH (08:00)
[2024-07-09] MEDS ORDERED: cefuroxime axetiL 250 MG TAB PO SCH (09:00)
--- NOTE | 2024-07-12 07:04 | OR ---
[facility] [address] [place] [place] [address] Signed DATE OF OPERATION: 07/08/2024 SURGEON: Renzo Yen MD PREOPERATIVE DIAGNOSIS: Severe degenerative joint disease, left hip. POSTOPERATIVE DIAGNOSIS: Severe degenerative joint disease, left hip. PROCEDURE PERFORMED: Left total hip arthroplasty with Luis Eduardo. CONFIGURATION MANAGER: Elinor Segal PA-C. Elinor was present critical for all portions procedure. ANESTHESIA: Spinal. BLOOD LOSS: 200 mL. IMPLANTS: [employer]ur-Fit advanced size 7, 50 mm cup and a +2.5 mm head. BRIEF HISTORY: Pauline is a 64-year-old female with progressive worsening of left hip arthritis. She had undergone prior right total hip and wished to proceed with a left. Risks, benefits and alternatives were discussed and she understood and wished to proceed. DESCRIPTION OF PROCEDURE: Once consent was obtained, she was taken to the operating room. After adequate anesthesia, she was placed on operating room table in the right lateral decubitus position with axillary roll. All downside pressure points were well padded. The left hip was then prepped and draped in a standard sterile fashion from the ribcage to the toes. The iliac crest was then marked out and two stab incisions were made for the computer array. Two Schanz pins were placed and the third in the center. We had a good stable construct with that. The hip was then approached through a standard anterior lateral approach, carried through skin and subcutaneous tissue. The IT band was divided longitudinally and the vastus lateralis was divided from the tip of the trochanter Electronically Signed By: RENZO YEN MD 07/12/24 0704 PATIENT NAME: PAUILNE CHANG OPERATIVE REPORT DATE OF : 60 REPORT #: [id number] PHYSICIAN: RENZO YEN MD PCP: RACHEL LAWRENCE DO REPORT IS CONFIDENTIAL AND NOT TO BE RELEASED WITHOUT AUTHORIZATION [facility] [address] [place], [place] [address] Signed distally along the anterior margin of the femur and elevated subperiosteally medially. The gluteus minimus and capsule were then split from the tip of the trochanter to the acetabular rim. The capsule was then elevated off the femoral neck around to the level of the lesser trochanter. The leg was then registered with the computer and the hip was dislocated and the femoral neck cut was made one fingerbreadth above the lesser trochanter. The head was removed. The periacetabular soft tissue was removed. The stem was then registered with the computer and the robot was brought in and the stem was reamed with a single pass of 50 mm to the predetermined depth. The acetabulum was then copiously irrigated. All debris was evacuated. The cup was then impacted in 40 degrees of abduction and 20 degrees of anteversion. The two screws were placed in the posterior superior quadrant. The acetabular liner was impacted. Attention was then turned to the proximal femur which was opened using the elisapath intelligence cutter followed by the Teresa awl and the lateralizing reamer. She was then sequentially broached up to a 7, which was again found to be quite well fitting. The high offset neck and a +0 head was positioned. The hip was reduced, found to be stable leg. Lengths found to be good. The computer reading was 1 mm longer on the opposite hip. The hip was again dislocated and the trials removed. We then placed the final stem, which was seated a little bit deeper than the broach and thus we switched to a +2.5 head. The +2.5 head was impacted onto the stem. The hip was reduced. Again leg lengths found to be good. Excellent range of motion with no impingement. The wound was then copiously irrigated with Surgiphor followed by normal saline. The periarticular soft tissue was injected with 100 mL ropivacaine and Toradol mixture. The capsule was then closed using #2 FiberWire. The vastus and IT band layers were closed independently using #2 Stratafix, subcutaneous tissue with 0 Stratafix and skin with 3-0 Stratafix. Wound was sealed with LiquiBand and Steri-Strips and dressed with an Acticoat-7 dressing. She tolerated the procedure well. All sponge, needle, and instrument counts were correct. Renzo Yen MD BA/MODL /[id number] Electronically Signed By: RENZO YEN MD 07/12/24 0704 PATIENT NAME: PAULINE CHANG OPERATIVE REPORT DATE OF : 60 REPORT #: [id number] PHYSICIAN: RENZO YEN MD PCP: RACHEL LAWRENCE DO REPORT IS CONFIDENTIAL AND NOT TO BE RELEASED WITHOUT AUTHORIZATION [address] [address] Signed Copies: ~ Electronically Signed By: RENZO YEN MD 07/12/24 0704 PATIENT NAME: PAULINE CHANG OPERATIVE REPORT DATE OF : 60 REPORT #: [id number] PHYSICIAN: RENZO YEN MD PCP: RACHEL LAWRENCE DO REPORT IS CONFIDENTIAL AND NOT TO BE RELEASED WITHOUT AUTHORIZATION
== END 2024-07-08 16:30 | disposition home or self-care (01) ==
LOC: DS 05:42
PROVIDERS: ATTEND Specialist
PROC: 0SRB0JZ Replacement of Left Hip Joint with Synthetic Substitute, Open Approach (ICD-10-PCS; principal; 2024-07-08 07:00)
DX: M16.52 Unilateral post-traumatic osteoarthritis, left hip (principal); K21.9 Gastro-esophageal reflux disease without esophagitis; G43.909 Migraine, unspecified, not intractable, without status migrainosus; Z88.2 Allergy status to sulfonamides; Z79.899 Other long term (current) drug therapy
CPT/HCPCS: 01214; 72170; 97161; A9270; C1713; C1776; J0690; J1885; J2003; J2250; J2704; J3010; J7121

== ENCOUNTER 2024-07-15 11:22 | Inpatient (IN) | payer BC ==
[2024-07-15] VITALS (25 sets, daily range): BP systolic 62–112; BP diastolic 42–87
[~2024-07-15] VITALS: Ht 154.9 cm; Wt 90.0 kg
[~2024-07-15 11:22] MED LIST changes: +ASPIRIN325 MG PO; +CEFUROXIME250 MG PO; +DULOXETINE HCL30 MG PO; -LACTATED RINGER'S 1,000 ML IV SCH
[2024-07-15] MEDS ORDERED: LIDOCAINE HCL 2% 5 ML SDV ONE ×2 (11:40→18:09)
[2024-07-15] MEDS ORDERED: MIDAZOLAM HCL 2 MG/2 ML VIAL ONE (11:40)
[2024-07-15] MEDS ORDERED: dexmedeTOMIDine HCl 200 MCG/2 ML VIAL ONE (11:40)
[2024-07-15] MEDS ORDERED: Ropivacaine HCl 0.5% 30 ML VIAL ONE ×2 (11:40→18:06)
[2024-07-15] MEDS ORDERED: BUPROPION XL150 MG PO (11:40)
[2024-07-15] MEDS ORDERED: SODIUM CHLORIDE 0.9% 20 ML IV ONE ×2 (11:40→18:06)
[2024-07-15] MEDS ORDERED: DEXAMETHASONE SOD PHOS 4 MG/ML VIAL ONE ×3 (11:40→18:06)
[2024-07-15] MEDS ORDERED: ondansetron HCL 4 MG/2 ML VIAL IV ONE (11:45)
[2024-07-15] MEDS ORDERED: HYDROmorphone HCL 1 MG/ML SYR IV PRN ×2 (11:45→12:00)
[2024-07-15] MEDS ORDERED: ondansetron HCL 4 MG/2 ML VIAL IV PRN (12:00)
[2024-07-15 12:03] LABS: BASOPHILS 0.6 % (0-2); EOSINOPHILS 3.5 % (0-6); HEMATOCRIT 28.6 % (35.0-50.0); HEMOGLOBIN 9.7 g/dL (12.0-18.0); LYMPHOCYTES 10.7 % (24-44); MCH 32.9 (27-36); MCV 96.8 fl (81-99); MONOCYTES 11.1 % (0-12); NEUTROPHILS 74.1 % (39-80); PLATELET COUNT 440 K/uL (140-440); RBC 2.96 M/ul (4.3-5.7); RDW 13.7 (10.5-15.0)
[2024-07-15 12:16] LABS: INR 0.99 (0.80-1.30)
[2024-07-15 12:22] LABS: ALBUMIN 2.6 g/dL (3.4-5.0); ALBUMIN/GLOBULIN RATIO 0.7 (1.1-2.4); ANION GAP 9.9 (7-21); BILIRUBIN, TOTAL 0.3 ng/dL (0.2-1.0); BUN/CREATININE RATIO 14.92 (6.0-28.6); CREATININE, SERUM 0.67 mg/dL (0.55-1.02); POTASSIUM 3.9 mmol/L (3.5-5.1); PROTEIN, TOTAL 6.3 g/dL (6.4-8.2)
[2024-07-15 12:40] LABS: ABO O; ANTIBODY SCREEN NEGATIVE; RH POSITIVE
[2024-07-15] MEDS ORDERED: SODIUM CHLORIDE 0.9% 1,000 ML IV PRN (12:45)
[2024-07-15] MEDS ORDERED: SODIUM CHLORIDE 0.9% 1,000 ML IV SCH ×2 (14:45→15:30)
--- NOTE | 2024-07-15 15:45 | NUR ---
Patient arrives to unit via stretcher, unable to move self to bed, transferred with staff assist. Patient c/o severe pain with any movement even after tap block. Patient medicated with dilaudid. Assessment complete. Patient has sensation intact to LLE, pulses intact, minimal swelling to BLE, Moderate swelling noted to L hip. Surgical dressing intact from initial hip replacement on 07/08. Ice pack to hip. Patient drowsy but oriented, on 3L NC which is not chronic for her, s/p blocks and IV pain medication slightly hypoxic on RA. IV to R AC flushes well, IV bolus infusing WNL.
--- NOTE | 2024-07-15 15:45 | NUR ---
Patient hypotensive. Alerted Dr Yen regarding vitals trend, see flowsheet. IV Bolus administered.
--- NOTE | 2024-07-15 16:00 | NUR ---
Pt reports pain continued to L hip, IV dilaudid administered, monitoring BP and patient neurological status
--- NOTE | 2024-07-15 16:30 | NUR ---
Patient states feeling like she voided, purewick does not have urine in cannister, rolled to remove excess linen and provide odalys care. Patient skin intact to back/coccyx with no redness. No void noted on chux or sheets. New purewick in place. Bladder scanned for 315 mls.
--- NOTE | 2024-07-15 16:45 | NUR ---
Continuing to monitor patient hypotensive status. IVF infusing WNL. BP is variable. Pt resting in bed, continues to have pain with any movement. REHABILITATION CONSULTANT notified and will attend to bedside to see patient.
--- NOTE | 2024-07-15 17:30 | NUR ---
Discussed patient status with Elinor Segal after she phoned to check in.
--- NOTE | 2024-07-15 18:23 | NUR ---
PHOTOGRAPHIC PLATEMAKER at bedside for patient assessment of blocks
--- NOTE | 2024-07-15 19:50 | NUR ---
CALLED CONTRERAS HOFFMAN FOR TO UPDATE AND ASK ABOUT RESTARTING HOME MEDICATIONS, NEW ORDERS GIVEN SEE EMAR. UPDATED CONTRERAS ON PATIENT STATUS PAIN MANAGEMENT AND V/S.
[2024-07-15] MEDS ORDERED: GABAPENTIN 600 MG TAB PO SCH (21:00)
[2024-07-15] MEDS ORDERED: lamoTRIgine 150 MG TAB PO SCH (21:00)
[2024-07-15] MEDS ORDERED: PROPRANOLOL HCL 10 MG TAB PO SCH (21:00)
--- NOTE | 2024-07-15 21:00 | NUR ---
CALLED FOR UPDATE, HE GAVE ORDERS TO ALLOW PATIENT EAT BREAKFAST AND MAKE NPO AFTER MIDNIGHT. ALSO HE GAVE ORDER TO REMOVE SURGICAL DRESSINGS IF SITES DRY LEAVE OPEN TO AIR. UPDATED ON PATIENT B/P AND PAIN MANAGEMENT.
--- NOTE | 2024-07-15 21:23 | NUR ---
PATIENT REPORTS PAIN 12/19 AND WOULD LIKE PAIN MEDICATION NOW, DILAUDID PRN ADMINISTERED, SEE EMAR.
--- NOTE | 2024-07-15 21:59 | NUR ---
REMOVED SURGICAL DRESSINGS X2 INCISIONS DRY, WILL LEAVE OPEN TO AIR PER ORDER.
[2024-07-16] VITALS (11 sets, daily range): BP systolic 96–123; BP diastolic 57–72
--- NOTE | 2024-07-16 00:16 | NUR ---
LABS DRAWN, ASSESSMENT COMPLETE, LEFT LEG BRUISING STABLE SLIGHTLY DARKER PROXIMAL TO LARGE HIP INCISION. SHE IS ALERT AND ORIENTED TO STAFF IN ROOM, SHE VERBALIZED, "I DIDNT THINK I WOULD BE ABLE TO SLEEP, BUT I DID." V/S STABLE AT THIS TIME.
[2024-07-16 00:20] LABS: BASOPHILS 0.4 % (0-2); EOSINOPHILS 0.1 % (0-6); HEMATOCRIT 25.8 % (35.0-50.0); HEMOGLOBIN 8.9 g/dL (12.0-18.0); LYMPHOCYTES 9.5 % (24-44); MCH 33.3 (27-36); MCHC 34.3 g/dl (30-36); MCV 97.1 fl (81-99); MONOCYTES 2.3 % (0-12); NEUTROPHILS 87.7 % (39-80); PLATELET COUNT 437 K/uL (140-440); RBC 2.66 M/ul (4.3-5.7); RDW 13.8 (10.5-15.0)
[2024-07-16 00:26] LABS: ANION GAP 10.9 (7-21); BUN/CREATININE RATIO 15.9 (6.0-28.6); CALCIUM 8.3 mg/dL (8.5-10.1); CREATININE, SERUM 0.44 mg/dL (0.55-1.02); POTASSIUM 4.9 mmol/L (3.5-5.1)
--- NOTE | 2024-07-16 01:48 | NUR ---
PATIENT RESTING QUIETLY IN BED EYES CLOSED RESPIRATIONS REGULAR 19 ON 2L OXYGEN WHILE SLEEPING 90-93% OXYGEN SATURATION. NO DISTRESS NOTED. INCISIONS X2 FROM LEFT HIP SURGERY WELL APPROXIMATED, DRY.
--- NOTE | 2024-07-16 03:05 | NUR ---
PATIENT BLADDER SCANNED FOR 1350ML. SMITH CATHETER PLACED PER PROTOCOL FOR BLADDER SCAN GREATER THAN 500ML. SMITH PLACED STERILE FIELD MAINTAINED THROUGHOUT. PATIENT TOLERATED WELL, DILAUDID PRN ADMINISTERED FOR PAIN 8/10 AT LEFT HIP. PATIENT HAD BE[facility]EPING [facility]
[2024-07-16 05:36] LABS: BASOPHILS 0.1 % (0-2); HEMATOCRIT 25.4 % (35.0-50.0); HEMOGLOBIN 8.7 g/dL (12.0-18.0); LYMPHOCYTES 12.3 % (24-44); MCH 33.4 (27-36); MCHC 34.4 g/dl (30-36); MCV 97.3 fl (81-99); MONOCYTES 4.9 % (0-12); NEUTROPHILS 82.7 % (39-80); PLATELET COUNT 431 K/uL (140-440); RBC 2.61 M/ul (4.3-5.7); RDW 13.7 (10.5-15.0)
--- NOTE | 2024-07-16 05:46 | NUR ---
CALLED CONTRERAS HOFFMAN FOR PROVIDED CELL NUMBER TO GIVE UPDATE ON THE NIGHT, UPDATE ABOUT SMITH PLACEMENT DUE TO URINE RETENTION, AND AM LABS. NO NEW ORDERS AT THIS TIME.
[2024-07-16 05:50] LABS: ANION GAP 11.2 (7-21); BUN/CREATININE RATIO 13.04 (6.0-28.6); CALCIUM 8.6 mg/dL (8.5-10.1); CREATININE, SERUM 0.46 mg/dL (0.55-1.02); POTASSIUM 4.2 mmol/L (3.5-5.1)
--- NOTE | 2024-07-16 07:30 | NUR ---
report from marla espinal night assistant, pt resting in bed with falcon to gravity, call light in reach, plan for npo at 9 am and pt is 3rd on waitlist for [facility] surgery. Dr. Yen called at this time and spoke with machining department supervisor Yisel.
[2024-07-16] MEDS ORDERED: SENNOSIDES/DOCUSATE 1 EA TAB PO SCH (09:00)
[2024-07-16] MEDS ORDERED: DULOXETINE HCL 30 MG CAP PO SCH (09:00)
[2024-07-16] MEDS ORDERED: buPROPion HCL XL 150 MG TAB.XL.24H PO SCH (09:00)
[2024-07-16] MEDS ORDERED: buPROPion HCL 100 MG TABLET PO SCH (09:00)
[2024-07-16] MEDS ORDERED: GABAPENTIN 300 MG CAP PO SCH (09:00)
--- NOTE | 2024-07-16 09:03 | NUR ---
PT AND IN ROOM, PT HAPPY - EATING OUTSIDE FOOD FROM LOCAL RESTAURANT BEFORE GOING NPO. AWARE OF STANDBY FOR [facility]. ON ASSESSMENT PT REPORTS PAIN MEDS AND LAST BM MONDAY, PO SENNA GIVEN NIO - FOR PREVENTION OF CONSTIPATION. PT WITH SCDS AND TEDS ON. DENIES NEEDS.
--- NOTE | 2024-07-16 10:04 | NUR ---
VISITED DURING SPIRITUAL CARE ROUNDS. PT EXHIBIT SIGNS OF ANXIETY, EXPRESSED FRUSTRATION WITH WAIT. PHARMACY SALES REPRESENTATIVE PROVIDED SUPPORTIVE PRESENCE, HOSPITALITY, PRAYER, FACILITATED INTERACTION WITH THERAPY ANIMAL. PT EXPRESSED GRATITUDE, ANXIETY APPEARED TO BE REDUCED.
[2024-07-16] MEDS ORDERED: LAMOTRIGINE150 MG PO (10:06)
--- NOTE | 2024-07-16 10:12 | NUR ---
[place] CL[place] [facility] [place] [facility] OBS 07/15/24 @ 1125 ORDER MATCHES REG NO AUTH REQUIRED PER GUIDELINES PENDING TRANSFER TO HIGHER LEVEL OF CARE TO COMPLETE PROCEDURE 07/17/24
--- NOTE | 2024-07-16 10:37 | NUR ---
ALERT AND ORIENTED IN BED. PLAN TO TRANSFER TO [facility] FOR SURGICAL INTERVENTION. LIVES IN HOUSE WITH SPOUSE. THEY HAVE 1 STEP TO GET INSIDE. PATIENT STATES SHE HAS A WALKER, CANE AND SHOWER CHAIR AND SHE IS PLANNING ON HAVING SPOUSE GET A TOILET RISER FOR THE BATHROOM FOR HER DISCHARGE. SHE DRIVES AT BASELINE. DENIES FINANCIAL DIFFICULTY. DENIES CM NEEDS AT THIS TIME.
--- NOTE | 2024-07-16 10:54 | NUR ---
MED REC COMPLETE
--- NOTE | 2024-07-16 11:09 | NUR ---
PT GIVEN IV MED SEE EMAR FOR PAIN, LEFT FA IV BACK FLOWS BLOOD - FLUSHES WELL. CALL LIGHT IN REACH.
--- NOTE | 2024-07-16 12:46 | NUR ---
DR ZENDEJAS CALLED AND UPDATED BY WATER PROJECT ENGINEER Mark CHANG THAT PT IS MOVED UP TO 2 ON [facility] WAIT LIST. NEW ORDERS FOR PT TO HAVE REG DIET. SALAD AND DRINK ORDERED AND PROVIDED TO PT. DENIES OTHER NEEDS, CALL LIGHT IN REACH, AT SIDE.
--- NOTE | 2024-07-16 14:07 | NUR ---
PT REPOSITIONED UP IN BED, MEDICATED FOR 9/10 PAIN WITH MOVEMENT, ICE TO LEFT HIP.
--- NOTE | 2024-07-16 14:31 | NUR ---
REPORT FROM RADHA NAVARRETE RN. DALTON QUESADA IN ROOM FOR ASSESSMENT. PATIENT NUMBER 2 ON [facility] WAITLIST. DISCUSSED RESTARTING HOME ABX WHILE HERE IN THE HOSPITAL, ORDERS RECEIVED.
--- NOTE | 2024-07-16 17:42 | NUR ---
PATIENT REPORTS DECREASE IN 9/10 PAIN TO 6/10. PATIENT DECLINES DINNER TRAY EXCEPT FRUIT CP AND CORN MUFFIN. WILL BRING HER FOOD
--- NOTE | 2024-07-16 18:35 | NUR ---
brings dinner. patient eating and denies needs at this time.
--- NOTE | 2024-07-16 20:26 | NUR ---
ROUNDING IN ROOM TO DISCUSS NIGHT TIME MEDS AND PAIN MANAGEMENT. PATIENT REPORTS SHE IS UNCOMFORTABLE IN THE BED, SHE FEELS THE PILLOWS ARE CROWDING HER AND HER SHEETS AND BLANKETS ARE TANGLED. PATIENT IS RESTING IN BED TO THE FAR RIGHT OF BED WITH PILLOWS TUCKED ALL AROUND HER SHOULDERS. SECOND RN INTO PATIENT ROOM TO ASSIST WITH REPOSITIONING, DILAUDID PRN ADMINISTERED PRIOR TO ADJUSTING, NEW DRAW SHEET AND DEPENDS PLACED, PATIENT LOG ROLLED TO FACILITATE THIS. SHE TOLERATED WELL WITH EXPECTED INCREASE IN PAIN THAT RESOLVED ONCE AT REST. PILLOWS AND BLANKETS REPOSITIONED, PATIENT THEN STATES, "THAT FEELS MUCH MORE COMFORTABLE, THANK YOU LADIES." HS MEDICATIONS THEN ADMINISTERED, CALL LIGHT IN REACH, PATIENT VERBALIZED NO FURTHER NEEDS AT THIS TIME.
[2024-07-16] MEDS ORDERED: cefuroxime axetiL 500 MG TAB PO SCH (21:00)
--- NOTE | 2024-07-17 00:01 | NUR ---
PATIENT WOKE FROM SLEEP, STATED "I MOVED MY LEG WRONG". ENDORSES 10/10 PAIN. MEDICATED WITH DILAUDID PER EMAR FOR PAIN. CALL LIGHT IN REACH.
[2024-07-17 00:21] VITALS: BP 102/61
--- NOTE | 2024-07-17 03:25 | NUR ---
PATIENT CALLED [facility] ST[facility] ASKED FOR PAIN MEDICATIONS AND A BOOST IN BED, PATIENT ADMINISTERED DILAUDID PRN FOR LEFT HIP PAIN, BOOSTED IN BED AND PROVIDED FRESH ICE WATER. PATIENT HAS NO FURTHER REQUESTS AT THIS TIME.
[2024-07-17 06:02] VITALS: BP 100/58
--- NOTE | 2024-07-17 08:02 | NUR ---
report from marla rn, pt resting in bed with falcon to gravity. call light in reach.
[2024-07-17 08:33] VITALS: BP 105/67
--- NOTE | 2024-07-17 08:52 | NUR ---
THIS RN CALLED [facility] FOR UPDATE, #1 ON WAITLIST - PT IS HAPPIER WHEN NOTIFIED. EATING MEAL AT THIS TIME.
--- NOTE | 2024-07-17 10:57 | NUR ---
rn called transfer center - continues to be first on list waiting for bed. resting in bed. call light in reach.
--- NOTE | 2024-07-17 10:57 | NUR ---
AWAITING BED AT [facility]. NO CM NEEDS AT THIS TIME.
--- NOTE | 2024-07-17 11:09 | NUR ---
SPOKE WITH DR ZENDEJAS ABOUT ACCEPTING DOCTOR IN [place] AT [facility]. CALLED AND TALKED WITH THEM ABOUT TRANSFERING PT. THEY REPORT THEIR WAITLIST IS "EXTENSIVE" AND WILL PLACE PT ON IT
--- NOTE | 2024-07-17 11:28 | NUR ---
VISITED DURING SPIRITUAL CARE ROUNDS. PT APPEARED TO BE SLEEPING. DID NOT DISTURB. PROVIDED PRAYER.
--- NOTE | 2024-07-17 11:30 | NUR ---
CALL FROM LUCINA AT [facility]. REPORTS BED SPACE WILL BE AVAILABLE AT [address]. LET [address] ZENDEJAS KNOW WHO REPORTS HE WOULD LIKE PT TO BE FLOWN
--- NOTE | 2024-07-17 11:40 | NUR ---
PT UPDATE - PLAN TO TRSF TO [facility] DR.
--- NOTE | 2024-07-17 11:48 | NUR ---
CONFIRM WITH [facility] PT HAS AIR COVERAGE UNTIL 09/09/24. PER REQUEST TO CHECK.
[2024-07-17 12:00] VITALS: BP 102/68
--- NOTE | 2024-07-17 12:00 | NUR ---
PRN PAIN MEDS GIVEN - LUNCH AND CL LIQ ENSURE PROVIDED. IN ROOM
--- NOTE | 2024-07-17 12:12 | NUR ---
ANDRESSA CHAIREZ IN ROOM FOR UPDATES TO PT AND .
[2024-07-17] MEDS ORDERED: Ropivacaine HCl 0.5% 30 ML VIAL ONE (12:47)
[2024-07-17] MEDS ORDERED: SODIUM CHLORIDE 0.9% 20 ML IV ONE (12:47)
[2024-07-17] MEDS ORDERED: DEXAMETHASONE SOD PHOS 4 MG/ML VIAL ONE (12:47)
[2024-07-17] MEDS ORDERED: LIDOCAINE HCL 1% 30 ML SDV ONE (12:47)
[2024-07-17] MEDS ORDERED: dexmedeTOMIDine HCl 200 MCG/2 ML VIAL ONE (12:48)
[2024-07-17] MEDS ORDERED: MIDAZOLAM HCL 2 MG/2 ML VIAL ONE (13:01)
[2024-07-17] MEDS ORDERED: fentaNYL citrate 100 MCG/2 ML VIAL ONE (13:13)
--- NOTE | 2024-07-17 13:32 | NUR ---
RN ASSIST PT AND SCIENTIFIC SPECIALIST DARIEN Dong WITH LEFT HIP BLOCK. VERSED GIVEN BY DARIEN TO KEEP PT COMFORTABLE - DURING PROCEDURE 10/10 PAIN, VERBAL ORDER TO GIVE 25 MG FENTANYL IV DURING PROCEDURE. PT TOLERATED WELL AND WAS REPORSITIONED. FAMILY NOW IN ROOM HOB UP AND CALL LIGHT IN REACH.
[2024-07-17] MEDS ORDERED: fentaNYL citrate 100 MCG/2 ML VIAL IV ONE (14:00)
--- NOTE | 2024-07-17 15:00 | NUR ---
PT CELL PHONE PACKED IN TOGO BAG, ALL BELONGINGS WITH PT AND FAMILY - TOOK [facility] TODAY - SON HERE IN ROOM AND AGREES THAT IS WHERE IT WENT. PT HAS NEW IV TO R FA. GLASSES ON PT.
[2024-07-17 15:02] VITALS: BP 118/65
[2024-07-17 16:00] VITALS: BP 120/71
== END 2024-07-17 15:00 | disposition short-term general hospital (02) | DRG 536 ==
LOC: ED 11:22 → CCU 11:24
PROVIDERS: Emergency Medicine; ADMIT Specialist; ATTEND Specialist
DX: S72.002A Fracture of unspecified part of neck of left femur, initial encounter for closed fracture (principal); M97.02XA Periprosthetic fracture around internal prosthetic left hip joint, initial encounter; F32.A Depression, unspecified; M17.0 Bilateral primary osteoarthritis of knee; I25.10 Atherosclerotic heart disease of native coronary artery without angina pectoris; E78.00 Pure hypercholesterolemia, unspecified; Z96.611 Presence of right artificial shoulder joint; Z96.661 Presence of right artificial ankle joint; Z96.643 Presence of artificial hip joint, bilateral; Z98.1 Arthrodesis status; Z98.890 Other specified postprocedural states; Z88.2 Allergy status to sulfonamides; Z91.048 Other nonmedicinal substance allergy status; Z79.82 Long term (current) use of aspirin; Z79.891 Long term (current) use of opiate analgesic; Z79.899 Other long term (current) drug therapy; W18.30XA Fall on same level, unspecified, initial encounter
CPT/HCPCS: 36415; 51798; 64447; 64450; 76942; 80048; 80053; 85025; 85610; 86850; 86900; 86901; 94799; 96361; 96374; 96375; 96376; 99285-25; A9270; G0378; J1100; J1171; J2003; J2250; J2405; J2795; J3010; J7030